=== PATIENT | male | born 2005 | race Asian ===

== ENCOUNTER 2025-07-12 10:03 | Emergency (ER) | payer OTHER, SELFPAY ==
[2025-07-12 10:10] VITALS: BP 128/87; PULSE 70; RESP 16; TEMP 36.8; O2SAT 99; BMI 21.3
--- NOTE | 2025-07-12 10:21 | CRLHL7_ITS ---
For Patients: As a result of the Century Cures Act, medical imaging exams and procedure reports are released immediately into your electronic medical record. You may view this report before your referring provider. If you have questions, please contact your health care provider. INDICATION: Abdominal pain TECHNIQUE: Axial images were obtained from the diaphragm to the pubic symphysis. Reformats were obtained in the coronal and sagittal plane. IV Contrast: 58 cc Isovue 370 Oral Contrast: None COMPARISON: None. FINDINGS: Lower chest: Unremarkable. Liver: Unremarkable. Normal in size and attenuation. No masses. Gallbladder and bile ducts: Unremarkable. No stones or inflammation. No biliary dilatation. Spleen: Unremarkable. Normal in size without mass. Pancreas: Unremarkable. No mass or inflammation. Adrenal glands: Unremarkable. No nodules. Kidneys: Unremarkable. No masses, stones, or hydronephrosis. Vasculature: Unremarkable. GI tract: Unremarkable. No dilated bowel or focal inflammation. Unremarkable appendix. Pelvis: Trace free fluid deep pelvis. Bones: Unremarkable for age. IMPRESSION: Trace free fluid in the deep pelvis of uncertain etiology, otherwise unremarkable abdomen and pelvis CT. Please note that all CT scans at this facility use dose modulation, iterative reconstruction, and/or weight-based dosing when appropriate to reduce radiation dose to as low as reasonably achievable. Dictated by Rhett Marquez MD @ 07/12/2025 11:57:53 AM (Electronically Signed)
--- NOTE | 2025-07-12 10:23 | ED.ABDPAIN ---
HPI - Abdominal Pain General Chief Complaint: Abdominal Pain Stated Complaint: Abdominal pain Time Seen by Provider: 07/12/25 10:23 History of Present Illness HPI narrative: Patient is a 19-year-old gentleman who presents with mid abdominal pain. He felt well last night had normal bowel movement but woke up this morning with the worse abdominal pain of his life. Is located in the epigastrium and super umbilical region. He has had no diarrhea he has been passing a small amount of gas. Um the patient has had no recent diarrhea or other illnesses. He is otherwise in excellent health is had no free VS abdominal surgeries. Related Data Home Medications ?Medication ?Instructions ?Recorded ?Confirmed No Known Home Medications 07/12/25 07/12/25 Allergies Allergy/AdvReac Type Severity Reaction Status Date / Time Penicillins Allergy Unknown Verified 07/12/25 10:15 Review of Systems Status of ROS Reports: 10 or more systems reviewed and unremarkable except as noted in History and below PFSH PFSH Social History Smoking Status: Never smoker How often do you have a drink containing alcohol: never How often do you have six or more drinks on one occasion: Never AUDIT-C Alcohol total score: 0 Non-prescribed substance use: denies use service: No Exam Narrative: Exam Narrative: EXAM GENERAL: Patient appears acutely distressed. EYES: No scleral icterus. LYMPH: No supraclavicular or cervical lymphadenopathy. SKIN: Visible skin seen during exam normal or with benign process only. EXT: No dependent lower extremity pedal edema. HEART: Regular rate and rhythm with no murmurs, rubs, or gallops. LUNGS: Clear to auscultation bilaterally with no crackles or wheezes. ABD: Mildly distended with hypoactive bowel sounds. PSYCH: Good eye contact, speech is not pressured. Const: Vital Signs, click to edit/add: Vital Signs - 24 hr 07/12/25 10:10 Temperature 98.3 F Pulse Rate [Right Pulse Oximeter] 70 Respiratory Rate 16 Blood Pressure [Ri ght Upper Arm] 128/87 Pulse Oximetry 99 Oxygen Delivery Me thod Room Air Course Course ED Course: Patient seen examined. IV placed Toradol given normal saline given CT abdomen pelvis CBC lipase comprehensive metabolic panel UA pending. Vital Signs Vital signs: Initial Vital Signs Temperature 98.3 F 07/12/25 10:10 Temperature Source Temporal Artery Scan 07/12/25 10:10 Pulse Rate 70 08/29/25 10:10 Pulse Rhythm Regular 07/12/25 10:10 Pulse Strength 3+ Normal 07/12/25 10:10 Respiratory Rate 16 07/12/25 10:10 Blood Pressure 128/87 07/12/25 10:10 Blood Pressure Mean 100 07/12/25 10:10 Blood Pressure Position Sitting 07/12/25 10:10 Pulse Oximetry 99 07/12/25 10:10 Oxygen Delivery Method Room Air 07/12/25 10:10 Vital Signs Temperature 98.3 F 07/12/25 10:10 Pulse Rate 70 07/12/25 10:10 Respiratory Rate 16 07/12/25 10:10 Blood Pressure 128/87 07/12/25 10:10 Pulse Oximetry 99 07/12/25 10:10 Oxygen Delivery Method Room Air 07/12/25 10:10 Temperature 98.3 F 07/12/25 10:10 Pulse Rate 70 07/12/25 10:10 Respiratory Rate 16 07/12/25 10:10 Blood Pressure 128/87 07/12/25 10:10 Pulse Oximetry 99 07/12/25 10:10 Oxygen Delivery Method Room Air 07/12/25 10:10 Medications Administered Medications: Discontinued Medications Generic Name Dose Route Start Last Admin Trade Name Freq PRN Reason Stop Dose Admin Sodium Chloride 1,000 mls @ 1,000 mls/hr 07/12/25 10:21 07/12/25 11:45 0.9 % Sodium Chloride 1000 Ml IV 07/12/25 11:20 Infused .Q1H MACARIO Infusion Ketorolac Tromethamine 30 mg 07/12/25 10:21 07/12/25 10:39 Ketorolac 30 Mg/Ml Inj IVP 07/12/25 10:22 30 mg ONCE ONE Administration MDM - Abdominal Pain MDM Narrative Medical decision making narrative: Patient presents with excruciating abdominal pain of several hours duration. He underwent CT scan which was unremarkable labs are reassuring including lipase. Patient was treated with normal saline and Toradol with resolution of his symptoms. This time patient is asymptomatic. If he is return if symptoms would recommend ultrasound further evaluation of his gallbladder. As he is feeling much better and is workup is unremarkable and go home slowly advanced diet activity as tolerated. Lab Data Labs: Lab Results 07/12/25 Range/Units 10:37 WBC 6.21 (4.50-11.00) K/uL RBC 4.88 (4.30-5.90) m/uL Hgb 15.2 (13.5-17.5) gm/dL Hct 44.6 (37.0-53.0) % MCV 91 (80-100) fL MCH 31 (26-34) pg MCHC 34 (32-36) gm/dL RDW Coeff of Danita 11.4 L (11.5-15.5) % Plt Count 238 (140-440) K/uL Neut % (Auto) 74.4 H (42.0-72.0) % Lymph % (Auto) 16.9 L (20-44) % [place] % (Auto) 6.6 (0.0-11.0) % Eos % (Auto) 1.6 (0.0-7.0) % Baso % (Auto) 0.3 (0.0-3.0) % Neut # (Auto) 4.60 (1.7-7.0) K/uL Lymph # (Auto) 1.00 (0.90-2.90) K/uL [place] # (Auto) 0.40 (0.00-0.90) K/UL Eos # (Auto) 0.10 (0.00-0.50) K/uL Baso # (Auto) 0.02 (0.00-0.30) K/uL Abs Immat Gran (auto) 0.01 (0.00-0.30) K/uL Imm/Tot Granulo (auto) 0.2 % Sodium 138 (135-149) mmol/L Potassium 3.7 (3.6-5.1) mmol/L Chloride 101 (96-114) mmol/L Carbon Dioxide 27 (20-32) mmol/L Anion Gap 10 (7-15) mEq/L BUN 13 (5-24) mg/dL Creatinine 0.8 (0.5-1.5) mg/dL Estimated Creat Clear 113.40 Estimated GFR 130 ml/min Glucose 109 (60-115) mg/dL Calcium 9.5 (8.4-10.6) mg/dL Total Bilirubin 1.1 (0.1-1.5) mg/dL AST 24 (12-35) U/L ALT 17 (4-50) U/L Alkaline Phosphatase 53 (40-150) U/L Total Protein 7.4 (6.0-8.3) g/dL Albumin 4.6 (3.3-5.0) g/dL Lipase 24 (23-300) U/L Discharge Plan Discharge Clinical Impression: Abdominal pain Patient Disposition: Home, Self-Care Condition: Stable Instructions: Abdominal Pain (ED) Additional Instructions: Advanced diet as tolerated Resume previous activity Follow-up if needed with worsening symptoms. Activity Level: No Restrictions Discharge Diet: Regular Prescriptions: No Action No Known Home Medications Follow Up/Referrals: Provider,Not a Local [Primary Care Provider, Family Practice] Stand Alone Forms: [employer] Info Instructions
--- OUTSIDE RECORDS SUMMARY | 2025-07-12 10:30 | XMS_ITS | Clinical Summary ---
Author Organization [facility] Address [address] [place] [address] Care Team Providers Care [employer] Machine Operator Name Role Phone Neda Hahn MD Unavailable [phone] Neda Hahn MD Primary Care Provider [phone] Source Comments This information has been disclosed to you from records protected by Federal confidentiality rules (42 CFR part 2). The Federal rules prohibit you from making any further disclosure of this information unless further disclosure is expressly permitted by the written consent of the person to whom it pertains or as otherwise permitted by 42 CFR part 2. A general authorization for the release of medical or other information is NOT sufficient for this purpose. The Federal rules restrict any use of the information to criminally investigate or prosecute any alcohol or drug abuse patient.[facility] Allergies Active Allergy Reactions Criticality Noted Date Comments Penicillin G Rash, urticarial 09/12/2012 Medications No known medications Active Problems No known active problems Resolved Problems Problem Noted Date Diagnosed Date Resolved Date Strain of right elbow 12/23/20142014 Overview (12/23/2014): Seen in ER 2/15 Immunizations Immunization Administration Dates Next Due DTaP 10/23/2008, 7,04/15/2005,02/17,2004 HEPATITIS B VACCINE 04/15/2005,2004,2003 HIB 11/30/2006, 5,02/17/2005,12/15 HPV, nonavalent 11/22/2018,02/16/2017 Hepatitis A 10/21/2011,11/30/2006 Influenza Vaccine QUADR PF 6 + MO (FLUZONE, FLULAVAL, FLUARIX) 12/16/2022,11/23/2021,11/21/2019 Influenza vaccine 3+ YRS (Fluvirin) 11/30/2006 Influenza vaccine 6-35 MONTHS 10/13/2005, 005 Influenza vaccine NASAL 09/12/2012,10/23/2008 Influenza vaccine QUADR PF 3 + YO (AFLURIA) 11/22/2018 MMR Vaccine INJ 10/23/2008,10/13/2005 Meningococcal Roel Vac ACYW- 135 (MCV4) UNSPECIFIED FORMULA 12/11/2020,02/16/2017 Pfizer 12+ Monovalent (Purpl e Cap) COVID-19 Vaccine INJ 11/26/2021,04/10/2021,03/14/2021 Pneumococcal Prevnar 7 10/13/2005,2004,02/17/2005,12/15 Polio Inj *IPV 10/23/2008, 7,02/17/2005,12/15 Skin Test - PPD 02/05/2010 Tdap (ADACEL) 7-64 YRS 01/22/2015 Varicella 02/05/2010,10/13/2005 Family History Medical History Relation Comments Hypercholesterolemia Mother Hypertension Mother Relation Status Comments Father Alive Mother Alive Paternal Grandfather Sister Alive Social History Tobacco Use Types Packs/Day Years Used Date Smoking Tobacco: Never Smokeless Tobacco: Never Alcohol Use Standard Drinks/Week Comments No 0 (1 standard drink = 0.6 oz pur e alcohol) New Years AUDIT-C Answer Date Recorded Frequency of Alcohol Consumption Never 11/22/2018 Average Number of Drinks Not on file 019 Frequency of Binge Drinking Not on file 07/2019 Core Social Determinants of Health Screening Que stimanoj Answer Date Recorded Unable to Pay for Housing in the Last Year Not o n file 06/26/2023 [address] of Places Lived in the Last Year Not on f ile 06/26/2023 Unstable Housing in the Last Year Not on file 06/26/2023 Sex and Gender Information Value Date Recorded Sex Assigned at Not on file Legal Sex Male 2:15 PM PST Gender Identity Not on file Sexual Orientation Not on file Last Filed Vital Signs Vital Sign Reading Time Taken Comments Blood Pressure 118/77 12/16/2022 8:04 AM PST Pulse 66 12/16/2022 8:04 AM PST Temperature 36.2 C (97.2 F) 11/23/2021 2:08 PM PST Respiratory Rate 18 12/22/2014 4:33 PM PST Oxygen Saturation 99% 12/22/2014 4:33 PM PST Inhaled Oxygen Concentration - - Weight 59.9 kg (132 lb) 12/16/2022 8:04 AM PST Height 161.3 cm (5' 3.5) 12/16/2022 8:04 AM PST Body Mass Index 23.02 12/16/2022 8:04 AM PST Plan of Treatment Health Maintenance Due Date Last Done Comments HEPATITIS C SCREENING 2022 UNIVERSAL HIV SCREENING 2022 COVID-19 Vaccine ( season) 2024 11/26/2021, 04/10/2021, 03/14/2021 DTaP,Tdap,or Td Vaccine (7 - Td or Tdap) 01/22/2025 01/22/2015, 10/23/2008, 11/30/2006, Additional history exists INFLUENZA VACCINE 08/14/2025 12/16/2022, , 11/21/2019, Additional history exists HEPATITIS B VACCINE Completed 04/15/2005, 2004, 2004 PNEUMOCOCCAL VACCINE 0-49 YEARS Aged Out 10/13/2005, 04/15/2005, 02/17/2005, Additional history exists No longer eligible based on patient's age to complete this topic MMR VACCINE ADULT Completed 10/23/2008, 10/13/2005 VARICELLA VACCINE Completed 02/05/2010, 10/13/2005 HEPATITIS A VACCINE Completed 10/21/2011, HPV VACCINE Completed 11/22/2018, 02/16/2017 MENINGOCOCCAL ACWY VACCINE Completed 12/11/2020, Insurance [employer] MANAGED CHOICE [employer] PPO POS EPO [employer] MANAGED CHOICE Care Teams [employer] Operator Relationship Specialty Start Date End Date Neda Hahn MD [address] [place] [id number] PCP - Other Care Provider Pediatrics 11/14/11 Neda Hahn MD [address] [place] [id number] PCP - General Pediatrics 11/14/11
[2025-07-12 10:43] LABS: Hematocrit 44.6 % (37.0-53.0); Hemoglobin* 15.2 gm/dL (13.5-17.5); Immature Granulocytes Abs Auto 0.01 K/uL (0.00-0.30); Immature Granulocytes Pct Auto 0.2 %; Mean Corpuscular HGB Conc 34 gm/dL (32-36); Mean Corpuscular Hemoglobin 31 pg (26-34); Mean Corpuscular Volume 91 fL (80-100); RDW Coefficient of Variation % 11.4 % (11.5-15.5); Red Blood Count 4.88 m/uL (4.30-5.90); White Blood Count* 6.21 K/uL (4.50-11.00)
[2025-07-12 10:48] LABS: Lymphocytes Absolute Auto 1.00 K/uL (0.90-2.90); Slide Review Reflex No
[2025-07-12 10:57] LABS: Albumin* 4.6 g/dL (3.3-5.0); Chloride* 101 mmol/L (96-114)
[2025-07-12 10:58] LABS: Potassium* 3.7 mmol/L (3.6-5.1); Sodium* 138 mmol/L (135-149)
[2025-07-12 11:00] LABS: Alanine Aminotransferase* 17 U/L (4-50); Aspartate Amino Transferase* 24 U/L (12-35); Blood Urea Nitrogen* 13 mg/dL (5-24); Creatinine* 0.8 mg/dL (0.5-1.5); Est. Creatinine Clearance* 113.40; Estimated Glomerular Filt Rate 130 ml/min
[2025-07-12 11:01] LABS: Alkaline Phosphatase* 53 U/L (40-150); Anion Gap 10 mEq/L (7-15); Bilirubin Total* 1.1 mg/dL (0.1-1.5); Calcium* 9.5 mg/dL (8.4-10.6); Carbon Dioxide* 27 mmol/L (20-32); Glucose* 109 mg/dL (60-115); Total Protein* 7.4 g/dL (6.0-8.3)
== END 2025-07-12 12:27 | disposition home or self-care (01) ==
PROVIDERS: Emergency Provider Internal Medicine
DX: R10.9 Unspecified abdominal pain (principal)
CPT/HCPCS: 36415; 74177; 80053; 81003; 83690; 85025; 96374; 99283; 99284; J1885; J7030; Q9967